=== PATIENT | male | born 1990 | race Caucasian/White ===

== ENCOUNTER → 2017-07-02 | Outpatient (CLI) | payer OTHER ==
--- NOTE | 2017-07-02 09:31 | Diagnostic Imaging Report ---
PROCEDURE:X-RAY RIGHT FOOT, COMPLETE COMPARISON:None. INDICATIONS:right ball of foot pain for 7 months, kicked rock underwater FINDINGS: There are no fractures, dislocations, lytic or blastic lesions. The bones are well-mineralized. The soft-tissues are unremarkable. CONCLUSION: No acute radiographic abnormality. Dictated by: Brian Kay M.D. on 07/02/2017 at 9:40 Electronically approved by: Brian Kay M.D. on 07/02/2017 at 9:40
== END ==
LOC: RAD 08:02
PROVIDERS: ATTEND Internal Medicine
DX: M79.671 Pain in right foot (principal)